=== PATIENT | female | born 1995 | race Two or more races ===

== ENCOUNTER 2017-02-28 02:43 | Emergency (ER) | payer MEDICAID ==
--- NOTE | 2017-02-28 06:57 | ER ---
ADMIT: 02/28/2017 RM/LOC: ER [facility] MR#: [id number] [facility] [address] [place] [id number] IVORYMILTON LOZANO [address] [address] Emergency Room Report SEX: F AGE: 21 : 1995 DATE: 02/28/2017 The patient is a 21-year-old female, suffers from bipolar disorder. Has been off her medications for the past 60 days. Now having increased disorganized thinking, insomnia, and tearfulness. Exam remarkable for acutely anxious and tearful, otherwise cooperative female with no active psychosis. Given lithium 300 mg p.o. and Seroquel or quetiapine 100 mg p.o. now. Follow up Dr. Vallejo today for medication refill and ongoing psychiatric care. George Jimenez MD/ sammyl JOB #: [id number] CC: George Jimenez MD, Attending Physician Varsha Sharma MD, Family Physician
== END 2017-02-28 03:28 | disposition home or self-care (01) ==
LOC: ER 02:43
DX: F31.9 Bipolar disorder, unspecified (principal); F41.9 Anxiety disorder, unspecified; Z76.0 Encounter for issue of repeat prescription; Z88.8 Allergy status to other drugs, medicaments and biological substances; Z79.899 Other long term (current) drug therapy